=== PATIENT | male | born 1970 | race Caucasian/White ===

== ENCOUNTER 2025-02-19 06:00 | Day surgery (SDC) | payer BC ==
[~2025-02-19 06:00] MED LIST: Sodium Chloride 0.9% 10 ML Syringe FLUSH PRN; Sodium Chloride 0.9% 10 ML Syringe FLUSH SCH
[2025-02-19] MEDS: Lactated Ringers 1,000 ML IV SCH (06:15)
[2025-02-19] MEDS ORDERED: Midazolam 1 MG/ML 2 ML SDV ONE (06:42)
[2025-02-19] MEDS ORDERED: Propofol 200 MG/20 ML SDV ONE ×2 (06:42→07:39)
[2025-02-19] MEDS ORDERED: fentaNYL 100 MCG/2 ML SDV ONE (06:42)
[2025-02-19] MEDS ORDERED: Ondansetron 4 MG/2 ML SDV IVPUSH PRN (06:51)
[2025-02-19] MEDS ORDERED: fentaNYL 100 MCG/2 ML SDV IVPUSH PRN (06:51)
[2025-02-19] MEDS ORDERED: Ropivacaine 0.5% 5 MG/ML 30 ML SDV ONE (06:55)
[2025-02-19] MEDS: Triamcinolone Acetonide 40 MG/ML 1 ML SDV ONE (08:03)
== END 2025-02-19 09:40 | disposition home or self-care (01) ==
LOC: JD.SDS 06:00
PROVIDERS: ATTEND Orthopaedic Surgery
DX: M17.11 Unilateral primary osteoarthritis, right knee (principal); M25.771 Osteophyte, right ankle; I10 Essential (primary) hypertension; E78.5 Hyperlipidemia, unspecified; Z79.899 Other long term (current) drug therapy
CPT/HCPCS: 28043; 64450; 76000; J0665; J0690; J2003; J2250; J2704; J2795; J3010; J3301; J7120; 01470